=== PATIENT | male | born 1945 | race Caucasian/White ===

== ENCOUNTER 2017-01-22 21:33 | Observation (INO) | payer MEDICARE ==
[~2017-01-22] VITALS: Ht 175.3 cm; Wt 75.0 kg
[~2017-01-22 21:33] MED LIST: ATEN50TA PO; ATOR40TA16 PO; NIAC500T5 PO
[2017-01-22 21:35] VITALS: BP 153/80; PULSE 95; RESP 16; TEMP 98.7; O2SAT 97
--- NOTE | 2017-01-22 22:24 | PD ---
HPI Chief Complaint: GI Complaint Time Seen by Provider: 22:08 Travel History International Travel<30 days: No Contact w/Intl Traveler<30days: No Traveled to known affect area: No History of Present Illness HPI 71 YO M with PMH of CAD s/p CABG x 3, enlarged aortic root, stable by yearly CT exam presents to the ED for evaluation of ~3 hour history of BRBPR accompanied by loose stools. Patient endorses 2/10 lower abdominal pain which is improved by a bowel movement. He endorses a "stomachache" and 2 episodes of diarrhea yesterday. Denies nausea, vomiting, fever, chills, dizziness, dysuria, chest pain, weakness, shortness of breath. He denies family history of colon cancer. Last colonoscopy in 2014 revealed polyps, scheduled for reevaluation by Dr. Méndez in 2018. PCP Dr. Josue at [facility], cardiology Dr. Rodriguez.. [facility] Past Medical History Cardiovascular Problems: Yes (HIGH CHOLESTEROL, DILATED AORTIC ROOT, BYPASS 1996) High Cholesterol: Yes Coronary Artery Disease: Yes Tetanus Vaccination: Unknown Influenza Vaccination: Yes Past Surgical History Abdominal Surgery: Yes (ABDOMINAL HERNIA) AICD: No Cardiac Surgery: Yes (triple bypass) Joint Replacement: No Pacemaker: No Social History Alcohol Use: Yes (daily 1 or 2 liquior or wine) Tobacco Use: No Substance Use: No Allergies-Medications (Allergen,Severity, Reaction): Coded Allergies: codeine (Unverified Allergy, Severe, 01/22/17) Reported Meds & Prescriptions Reported Meds & Active Scripts Active Reported Aspirin 81 Mg Chew 81 Mg CHEW DAILY Sildenafil 20 Mg Tab 30 Mg PO DAILY Niacin 500 Mg Tab 500 Mg PO HS Atorvastatin (Atorvastatin Calcium) 40 Mg Tab 40 Mg PO HS Atenolol 50 Mg Tab 25 Mg PO DAILY Review of Systems Except as stated in HPI: all other systems reviewed are Neg Physical Exam Narrative GENERAL: Well-nourished, well-developed nontoxic appearing white male in no acute distress.. SKIN: Focused skin assessment warm/dry. HEAD: Normocephalic. EYES: No scleral icterus. No injection or drainage. NECK: Supple, trachea midline. No JVD or lymphadenopathy. CARDIOVASCULAR: Regular rate and rhythm without murmurs, gallops, or rubs. RESPIRATORY: Breath sounds clear and equal bilaterally. No accessory muscle use. GASTROINTESTINAL: Abdomen soft, non-tender, nondistended. RECTAL EXAM: No masses or tenderness, stool is brown. No external hemorrhoids noted. Guaiac positive. MUSCULOSKELETAL: No cyanosis, or edema. BACK: Nontender without obvious deformity. No CVA tenderness. Data Data Last Documented VS Vital Signs Date Time Temp Pulse Resp B/P (MAP) Pulse Ox O2 Delivery O2 Flow Rate FiO2 01/23/17 00:32 70 20 94/56 (69) 100 Room Air 01/22/17 23:38 98.4 Orders Orders Complete Blood Count With Diff (01/22/17 22:27) Comprehensive Metabolic Panel (01/22/17 22:27) Urinalysis - C+S If Indicated (01/22/17 22:27) Iv Access Insert/Monitor (01/22/17 22:27) Ecg Monitoring (01/22/17 22:27) Oximetry (01/22/17 22:27) Sodium Chloride 0.9% Flush (Ns Flush) (01/22/17 22:30) Type And Screen (01/22/17 22:27) Coag Profile (01/22/17 22:27) Ct Abd/Pel W Iv Contrast(Rout) (01/22/17 23:44) Sodium Chlor 0.9% 1000 Ml Inj (Ns 1000 M (01/23/17 00:45) Pantoprazole Inj (Protonix Inj) (01/23/17 00:45) Pantoprazole Inj (Protonix Inj) (01/23/17 00:45) Admit Order (Ed Use Only) (01/23/17 00:42) Place In Observation (01/23/17 ) Vital Signs (Adult) Q4H (01/23/17 00:42) Activity Oob With Assistance (01/23/17 00:42) Other Sports Coach Or Instructor / Telemetry .CONTINUOUS (01/23/17 00:42) Sodium Chloride 0.9% Flush (Ns Flush) (01/23/17 00:45) Sodium Chloride 0.9% Flush (Ns Flush) (01/23/17 09:00) Naloxone Inj (Narcan Inj) (01/23/17 00:45) Basic Metabolic Panel (Bmp) (01/23/17 06:00) Complete Blood Count With Diff (01/23/17 06:00) Labs Laboratory Tests Test 01/22/17 22:20 01/22/17 22:45 Urine Color YELLOW Urine Turbidity CLEAR Urine pH 5.5 Urine Specific [place] 1.038 Urine Protein TRACE mg/dL Urine Glucose (UA) TRACE mg/dL Urine Ketones TRACE mg/dL Urine Occult Blood NEG Urine Nitrite NEG Urine Bilirubin NEG Urine Urobilinogen 2.0 MG/DL Urine Leukocyte Esterase NEG Urine RBC LESS THAN 1 /hpf Urine WBC 1 /hpf Urine Squamous Epithelial Cells <1 /hpf Urine Hyaline Casts 7 /lpf Urine Mucus MANY /lpf Microscopic Urinalysis Comment CULT NOT INDICATED White Blood Count 10.2 TH/MM3 Red Blood Count 3.88 MIL/MM3 Hemoglobin 12.4 GM/DL Hematocrit 36.7 % Mean Corpuscular Volume 94.5 FL Mean Corpuscular Hemoglobin 31.9 PG Mean Corpuscular Hemoglobin Concent 33.8 % Red Cell Distribution Width 13.3 % Platelet Count 156 TH/MM3 Mean Platelet Volume 10.0 FL Neutrophils (%) (Auto) 69.5 % Lymphocytes (%) (Auto) 18.1 % Monocytes (%) (Auto) 10.3 % Eosinophils (%) (Auto) 1.6 % Basophils (%) (Auto) 0.5 % Neutrophils # (Auto) 7.1 TH/MM3 Lymphocytes # (Auto) 1.8 TH/MM3 Monocytes # (Auto) 1.0 TH/MM3 Eosinophils # (Auto) 0.2 TH/MM3 Basophils # (Auto) 0.1 TH/MM3 CBC Comment DIFF FINAL Differential Comment Prothrombin Time 11.2 SEC Prothromb Time International Ratio 1.1 RATIO Activated Partial Thromboplast Time 26.1 SEC Blood Urea Nitrogen 21 MG/DL Creatinine 1.22 MG/DL Random Glucose 151 MG/DL Total Protein 6.8 GM/DL Albumin 3.5 GM/DL Calcium Level 9.1 MG/DL Alkaline Phosphatase 74 U/L Aspartate Amino Transf (AST/SGOT) 17 U/L Alanine Aminotransferase (ALT/SGPT) 10 U/L Total Bilirubin 0.9 MG/DL Sodium Level 140 MEQ/L Potassium Level 4.4 MEQ/L Chloride Level 106 MEQ/L Carbon Dioxide Level 26.9 MEQ/L Anion Gap 7 MEQ/L Estimat Glomerular Filtration Rate 59 ML/MIN [facility] Medical Decision Making Medical Screen Exam Complete: Yes Emergency Medical Condition: Yes Differential Diagnosis hemorrhoids versus GI bleed versus anemia versus other Narrative Course 71 YO M with PMH of CAD s/p CABG x 3, enlarged aortic root, stable by yearly CT exam presents to the ED for evaluation of ~3 hour history of BRBPR accompanied by loose stools. Patient endorses 2/10 lower abdominal pain which is improved by a bowel movement. He endorses a "stomachache" and 2 episodes of diarrhea yesterday. Denies nausea, vomiting, fever, chills, dizziness, dysuria, chest pain, weakness, shortness of breath. He denies family history of colon cancer. Last colonoscopy in 2014 revealed polyps, scheduled for reevaluation by Dr. Méndez in 2018. PCP Dr. Josue at [facility], cardiology Dr. Rodriguez. Vitals reviewed. Physical exam reveals a nontoxic-appearing white male in no acute distress. Belly exam is benign. Rectal exam reveals no evidence of external hemorrhoids. Guaiac positive. IV was established. CBC, CMP, coags, UA, type and screen ordered and pending. Patient signed out to Dr. Marrufo at end of shift. Please see her note for disposition. [facility] Point of Care Internal Pos. & Neg. Controls: Passed Fecal Specimen Occult Blood: Positive Shereen Iverson Jan 22, 2017 22:24
[2017-01-22] MEDS ORDERED: SODIUM CHLORIDE 0.9% FLUSH 10 ML FLUSH IV FLUSH PRN (22:30)
[2017-01-22 22:40] VITALS: BP 139/73; PULSE 78; RESP 18; O2SAT 99
[2017-01-22] MEDS ORDERED: SILD20TA11 PO (22:43)
[2017-01-22] MEDS ORDERED: ASPI-516 CHEW (22:43)
[2017-01-22 23:00] LABS: AUTOMATED NEUTROPHIL # 7.1 TH/MM3 (1.8-7.7); BASOPHIL # 0.1 TH/MM3 (0-0.2); BASOPHIL % 0.5 % (0.0-2.0); EOSINOPHIL # 0.2 TH/MM3 (0-0.4); EOSINOPHIL % 1.6 % (0.0-4.0); HEMATOCRIT 36.7 % (39.0-51.0); HEMO FLAGS DIFF FINAL; LYMPH % 18.1 % (9.0-44.0); LYMPHOCYTE # 1.8 TH/MM3 (1.0-4.8); MEAN CELL VOLUME 94.5 FL (80.0-100.0); MEAN CORPUSCULAR HEMOGLOBIN 31.9 PG (27.0-34.0); MEAN CORPUSCULAR HGB CONC 33.8 % (32.0-36.0); MONO % 10.3 % (0.0-8.0); NEUT % 69.5 % (16.0-70.0); PLATELET COUNT 156 TH/MM3 (150-450); RED BLOOD COUNT 3.88 MIL/MM3 (4.50-5.90); RED CELL DISTRIBUTION WIDTH 13.3 % (11.6-17.2); WHITE BLOOD COUNT 10.2 TH/MM3 (4.0-11.0)
--- NOTE | 2017-01-22 23:08 | PD ---
Physical Exam Narrative General: The patient is well-developed well-nourished male in no acute distress. Head and Neck exam: Head is normocephalic atraumatic. Eyes: EOMI, pupils are equal round and reactive to light. Nose: Midline septum with pink mucous membranes Mouth: Dentition unremarkable. Moist mucus membranes. Posterior oropharynx is not erythematous. No tonsillar hypertrophy. Uvula midline. Airway patent. Neck: No palpable lymphadenopathy. No nuchal rigidity. No thyromegaly. Cardiovascular: Regular rate and rhythm without murmurs, gallops, or rubs. Lungs: Clear to auscultation bilaterally. No wheezes, rhonchi, or rales. Abdomen: Soft, without tenderness to palpation in all 4 quadrants of the abdomen. No guarding, rebound, or rigidity. Normal bowel sounds are audible. Extremities: No clubbing, cyanosis, or edema. Data Data Last Documented VS Vital Signs Date Time Temp Pulse Resp B/P (MAP) Pulse Ox O2 Delivery O2 Flow Rate FiO2 01/23/17 00:32 70 20 94/56 (69) 100 Room Air 01/22/17 23:38 98.4 Orders Orders Complete Blood Count With Diff (01/22/17 22:27) Comprehensive Metabolic Panel (01/22/17 22:27) Urinalysis - C+S If Indicated (01/22/17 22:27) Iv Access Insert/Monitor (01/22/17 22:27) Ecg Monitoring (01/22/17 22:27) Oximetry (01/22/17 22:27) Sodium Chloride 0.9% Flush (Ns Flush) (01/22/17 22:30) Type And Screen (01/22/17 22:27) Coag Profile (01/22/17 22:27) Ct Abd/Pel W Iv Contrast(Rout) (01/22/17 23:44) Sodium Chlor 0.9% 1000 Ml Inj (Ns 1000 M (01/23/17 00:45) Pantoprazole Inj (Protonix Inj) (01/23/17 00:45) Pantoprazole Inj (Protonix Inj) (01/23/17 00:45) Admit Order (Ed Use Only) (01/23/17 00:42) Place In Observation (01/23/17 ) Vital Signs (Adult) Q4H (01/23/17 00:42) Activity Oob With Assistance (01/23/17 00:42) Enrollment Advisor / Telemetry .CONTINUOUS (01/23/17 00:42) Diet Npo (01/23/17 Breakfast) Sodium Chloride 0.9% Flush (Ns Flush) (01/23/17 00:45) Sodium Chloride 0.9% Flush (Ns Flush) (01/23/17 09:00) Basic Metabolic Panel (Bmp) (01/24/17 06:00) Complete Blood Count With Diff (01/24/17 06:00) Naloxone Inj (Narcan Inj) (01/23/17 00:45) Consult Gastroenterology (01/23/17 ) Labs Laboratory Tests Test 01/22/17 22:20 01/22/17 22:45 Urine Color YELLOW Urine Turbidity CLEAR Urine pH 5.5 Urine Specific [place] 1.038 Urine Protein TRACE mg/dL Urine Glucose (UA) TRACE mg/dL Urine Ketones TRACE mg/dL Urine Occult Blood NEG Urine Nitrite NEG Urine Bilirubin NEG Urine Urobilinogen 2.0 MG/DL Urine Leukocyte Esterase NEG Urine RBC LESS THAN 1 /hpf Urine WBC 1 /hpf Urine Squamous Epithelial Cells <1 /hpf Urine Hyaline Casts 7 /lpf Urine Mucus MANY /lpf Microscopic Urinalysis Comment CULT NOT INDICATED White Blood Count 10.2 TH/MM3 Red Blood Count 3.88 MIL/MM3 Hemoglobin 12.4 GM/DL Hematocrit 36.7 % Mean Corpuscular Volume 94.5 FL Mean Corpuscular Hemoglobin 31.9 PG Mean Corpuscular Hemoglobin Concent 33.8 % Red Cell Distribution Width 13.3 % Platelet Count 156 TH/MM3 Mean Platelet Volume 10.0 FL Neutrophils (%) (Auto) 69.5 % Lymphocytes (%) (Auto) 18.1 % Monocytes (%) (Auto) 10.3 % Eosinophils (%) (Auto) 1.6 % Basophils (%) (Auto) 0.5 % Neutrophils # (Auto) 7.1 TH/MM3 Lymphocytes # (Auto) 1.8 TH/MM3 Monocytes # (Auto) 1.0 TH/MM3 Eosinophils # (Auto) 0.2 TH/MM3 Basophils # (Auto) 0.1 TH/MM3 CBC Comment DIFF FINAL Differential Comment Prothrombin Time 11.2 SEC Prothromb Time International Ratio 1.1 RATIO Activated Partial Thromboplast Time 26.1 SEC Blood Urea Nitrogen 21 MG/DL Creatinine 1.22 MG/DL Random Glucose 151 MG/DL Total Protein 6.8 GM/DL Albumin 3.5 GM/DL Calcium Level 9.1 MG/DL Alkaline Phosphatase 74 U/L Aspartate Amino Transf (AST/SGOT) 17 U/L Alanine Aminotransferase (ALT/SGPT) 10 U/L Total Bilirubin 0.9 MG/DL Sodium Level 140 MEQ/L Potassium Level 4.4 MEQ/L Chloride Level 106 MEQ/L Carbon Dioxide Level 26.9 MEQ/L Anion Gap 7 MEQ/L Estimat Glomerular Filtration Rate 59 ML/MIN [facility] Medical Record Reviewed: Yes Supervised Visit with TATYANA: No Narrative Course I, Dr. Marrufo, have reviewed the advance practice practitioner's documentation and am in agreement, met with the patient face to face, made the diagnosis, and the medical decision making was done by me. The patient was initially evaluated by Shereen. Please see their complete history and physical. *My assessment and Findings: The patient presents with a history of rectal bleeding that he reports began around 8:30 PM tonight. The patient reports that he's had multiple episodes of bleeding from the rectum. He denies ever having a GI bleed previously. He denies regularly taking ibuprofen, Naprosyn, or other [id number] anti-inflammatory medications other than a low-dose aspirin daily due to his history of coronary artery disease. The patient reports that earlier in the day he did have some stomach upset prior to having the onset of these bloody stools. He denies having any prior history of diverticulitis or diverticulosis. He has a history of having a polyp removed in 2014 on colonoscopy by . He is due to have another colonoscopy in 2018. During the course of the patients emergency department visit, the patients history, examination, and differential diagnosis were reviewed with the patient. The patient was placed on a monitor tech with oximetry and frequent blood pressure monitoring. The patient had IV access obtained and blood work sent for analysis. The patient was typed and screened for blood. While being observed in the emergency department, the patient had another episode of bloody stool. I did examine the patient's stool and it was a significant amount of blood with blood clots mixed with stool. The patient was initially provided normal saline 1 L IV fluid bolus. Protonix 80 mg IV for followed by a Protonix drip. The patients laboratory studies were reviewed and remarkable for a white count of 10.2, hemoglobin 12.4, platelets 156 with 10.3 monocytes, CMP is remarkable for V1 and 21, GFR 59, glucose 151, ALT 10, PT 11.2, PTT 26.1. Urinalysis shows concentrated urine, trace ketones, otherwise unremarkable per Radiology studies were reviewed and remarkable for a CT scan of the abdomen and pelvis that shows mild diverticulitis involving the descending colon. There is no free air, small amount of free fluid is noted, nonobstructive bowel gas pattern. The patient will be started on Levaquin and Flagyl IV. The patients results were discussed with the patient, including the plan of care. I explained that further testing and/ or monitoring is indicated based on the patients history, examination, and/ or laboratory findings. Therefore, I recommended admission for additional evaluation. The patient expressed understanding and was agreeable with this plan. The patient was admitted to the hospital in guarded condition and sent to a bed under the care of the [facility] service. Physician Communication Physician Communication The patient's case including history, pertinent physical examination findings, and laboratory studies were discussed with Dr. Edwards. It was agreed that the patient would be admitted to the [facility] service. Diagnosis Primary Impression: GI bleed Additional Impression: Diverticulitis Admitting Information Admitting Physician Requests: Admit Ml Marrufo MD Jan 22, 2017 23:08
[2017-01-22 23:10] LABS: APTT (PATIENT) 26.1 SEC (24.3-30.1); INTERNATIONAL NORMALIZED RATIO 1.1 RATIO; PROTHROMBIN TIME - PATIENT 11.2 SEC (9.8-11.6)
[2017-01-22 23:12] LABS: BLOOD, URINE NEG (NEG); COMMENT (UR) CULT NOT INDICATED; CULTURE IF INDICATED CULT NOT INDICATED; GLUCOSE,URINE TRACE mg/dL (NEG); HYALINE CAST, URINE 7 /lpf (RARE); KETONE, URINE TRACE mg/dL (NEG); MUCUS URINE MANY /lpf (OCC); NITRITE,URINE NEG (NEG); PH, URINE 5.5 (5.0-8.5); SQUAMOUS EPITHELIAL CELL URINE <1 /hpf (0-5); URINE COLOR YELLOW (YELLW/STRAW)
[2017-01-22 23:15] LABS: ANION GAP 7 MEQ/L (5-15); AST (GOT) 17 U/L (15-37); BICARBONATE 26.9 MEQ/L (21.0-32.0); BLOOD UREA NITROGEN 21 MG/DL (7-18); CHLORIDE 106 MEQ/L (98-107); GLOMERULAR FILTRATION RATE 59 ML/MIN (>89); POTASSIUM 4.4 MEQ/L (3.5-5.1); SODIUM (NA) 140 MEQ/L (136-145)
[2017-01-22 23:16] LABS: ALT (GPT) 10 U/L (12-78)
[2017-01-22 23:18] LABS: ALKALINE PHOSPHATASE 74 U/L (45-117); TOTAL BILIRUBIN ADULT 0.9 MG/DL (0.2-1.0)
[2017-01-22 23:38] VITALS: BP 119/68; PULSE 74; RESP 17; TEMP 98.4; O2SAT 97
[2017-01-23] VITALS (7 sets, daily range): BP systolic 94–117; BP diastolic 56–77; PULSE 70–87; RESP 16–20; TEMP 97.9–98.6; O2SAT 96–100
[2017-01-23] MEDS ORDERED: PANTOPRAZOLE INJ 80 MG in SODIUM CHLORIDE 0.9% INJ 35 ML IV ONE (00:45)
[2017-01-23] MEDS ORDERED: NALOXONE HCL 0.4 MG/ML AMP IV PUSH PRN (00:45)
[2017-01-23] MEDS ORDERED: PANTOPRAZOLE INJ 80 MG in SODIUM CHLORIDE 0.9% INJ 100 ML IV SCH (00:45)
[2017-01-23] MEDS ORDERED: SODIUM CHLOR 0.9% 1000 ML INJ 1,000 ML IV ONE (00:45)
[2017-01-23] MEDS ORDERED: SODIUM CHLORIDE 0.9% FLUSH 10 ML FLUSH IV FLUSH PRN (00:45)
[2017-01-23] MEDS ORDERED: IOHEXOL 350 MG/ML 10 ML VIAL (for RAD DIAG) IVCONTRAST ONE (01:02)
--- NOTE | 2017-01-23 01:43 | RADRPT ---
EXAM DATE/TIME: 01/23/2017 00:57 [place] COMPARISON: No previous studies available for comparison. INDICATIONS : Lower abdominal pain and blood in stool. IV CONTRAST: 75 cc Omnipaque 350 (iohexol) IV ORAL CONTRAST: No oral contrast ingested. RADIATION DOSE: 7.03 CTDIvol (mGy) MEDICAL HISTORY : CAD. SURGICAL HISTORY : CABG ENCOUNTER: Initial ACUITY: 2 days PAIN SCALE: 2/10 LOCATION: Bilateral lower quadrant TECHNIQUE: Volumetric scanning of the abdomen and pelvis was performed. Using automated exposure control and ad justment of the mA and/or kV according to patient size, radiation dose was kept as low as reasonably achievable to obtain optimal diagnostic quality images. DICOM format image data is available electro nically for review and comparison. FINDINGS: LOWER LUNGS: The visualized lower lungs are clear. LIVER: Homogeneous density without lesion. There is no dilation of the biliary tree. No calcified gallston es. SPLEEN: Normal size without lesion. PANCREAS: Within normal limits. KIDNEYS: Normal in size and shape. There is no mass, stone or hydronephrosis. ADRENAL GLANDS: Within normal limits. VASCULAR: There is no aortic aneurysm. BOWEL/MESENTERY: There is mild wall thickening inflammatory change involving the proximal descending colon with small diverticuli. There is no free air or. There is minimal adjacent fluid. ABDOMINAL WALL: Within normal limits. RETROPERITONEUM: There is no lymphadenopathy. BLADDER: No wall thickening or mass. REPRODUCTIVE: Within normal limits. INGUINAL: There is no lymphadenopathy or hernia. MUSCULOSKELETAL: Within normal limits for patient age. CONCLUSION: 1. Mild diverticulitis involving the descending colon. There is no free air. A small amount of fluid. 2. Nonobstructive bowel gas pattern. William Lantigua MD on January 23, 2017 at 1:39 Board Certified Radiologist. This report was verified electronically.
[2017-01-23] MEDS ORDERED: LEVOFLOXACIN 500 MG PREMIX INJ 100 ML IV ONE (03:00)
[2017-01-23] MEDS ORDERED: metroNIDAZOLE 500 MG INJ 100 ML IV ONE (03:00)
--- NOTE | 2017-01-23 03:53 | HHI.HP ---
HPI Service [facility] Primary Care Physician Isabel Josue, Admission Diagnosis GI Bleed Diagnoses: (1) Lower GI bleeding Chief Complaint: "I was passing blood" Travel History International Travel<30 Days: No Contact w/Intl Traveler <30 Da: No Traveled to Known Affected Are: No History of Present Illness Written by Jaylin Gibbons, acting as scribe for Dr. Edwards on 01/23/17 at 03:53. Diarrhea 3 times yesterday; bright red blood in urine; reports severe bleeding Polyp on Colonoscopy in 2015 Has never been told he has diverticulosis or internal hemorrhoid Reports lower abdominal pain; symptoms accompanied by shortness of breath. Takes EC ASA 81 mg daily Denies ibuprofen, advil, bc powders, any NSAIDs Denies nausea, vomiting, fever, not on antibiotics recently, burning or pain with urination Denies syncope, chest pain with episodes. Wasn't dizzy, diaphoretic during first two episodes. Diaphoretic, dizzy, near syncopal, and short of breath with third episode of diarrhea and bleeding. 30 years ago had upper endoscopy that was negative while being worked up for IBS Review of Systems Except as stated in HPI: all other systems reviewed are Neg Past Family Social History Past Medical History CABG 1996 - yearly stress tests Basal cell CA on forehead Denies DM, HTN, CHF, atrial fibrillation, COPD, asthma, liver problems, cirrhosis, DVT, PE, CVA, seizures, thyroid problems, prostate problems . Past Surgical History Hernia repair CABG Skin cancer removal . Reported Medications Reported Meds & Active Scripts Active Reported Aspirin 81 Mg Chew 81 Mg CHEW DAILY Sildenafil 20 Mg Tab 30 Mg PO DAILY Niacin 500 Mg Tab 500 Mg PO HS Atorvastatin (Atorvastatin Calcium) 40 Mg Tab 40 Mg PO HS Atenolol 50 Mg Tab 25 Mg PO DAILY . Allergies: Coded Allergies: codeine (Unverified Allergy, Severe, 01/22/17) Active Ordered Medications Current Medications Sodium Chloride (NS Flush) 2 ml UNSCH PRN IV FLUSH FLUSH AFTER USING IV ACCESS ; Start 01/22/17 at 22:30; Stop 01/23/17 at 00:48; Status DC Sodium Chloride 1,000 ml @ 1,000 mls/hr Q1H ONCE IV Last administered on 00:38; Start 01/23/17 at 00:45; Stop 01/23/17 at 01:44; Status DC Pantoprazole Sodium 80 mg/ Sodium Chloride 35 ml @ 420 mls/hr BOLUS ONCE IV Last administered on 01/23/17 00:49; Start 01/23/17 at 00:45; Stop 01/23/17 at 00:49; Status DC Pantoprazole Sodium 80 mg/ Sodium Chloride 100 ml @ 10 mls/hr CONTINUOUS IV Last administered on 01/23/17 01:41; Start 01/23/17 at 00:45 Sodium Chloride (NS Flush) 2 ml UNSCH PRN IV FLUSH FLUSH AFTER USING IV ACCESS ; Start 01/23/17 at 00:45 Sodium Chloride (NS Flush) 2 ml BID IV FLUSH ; Start 01/23/17 at 09:00 Naloxone HCl (Narcan Inj) 0.4 mg UNSCH PRN IV PUSH SEE LABEL COMMENTS; Start 01/23/17 at 00:45 Iohexol (Omnipaque 350 Inj) 75 ml STK-MED ONCE IVCONTRAST Last administered on 01/23/17 01:02; Start 01/23/17 at 01:02; Stop 01/23/17 at 01:03; Status DC Levofloxacin/ Dextrose 100 ml @ 100 mls/hr ONCE ONCE IV ; Start 01/23/17 at 03 :00; Stop 01/23/17 at 03:59 Metronidazole 100 ml @ 100 mls/hr ONCE ONCE IV ; Start 01/23/17 at 03:00; Stop 01/23/17 at 03:59 . Family History Both parents with CAD . Social History Tobacco: in his twenties, not routinely Alcohol: daily 1 - 2 drinks Illicit Drugs: denies . Physical Exam Vital Signs Vital Signs Date Time Temp Pulse Resp B/P (MAP) Pulse Ox O2 Delivery O2 Flow Rate FiO2 01/23/17 01:48 98.1 78 16 111/58 (75) 99 01/23/17 01:47 01/23/17 01:41 87 18 117/77 (90) 98 Nasal Cannula 2.00 01/23/17 00:32 70 20 94/56 (69) 100 Room Air 01/22/17 23:38 98.4 74 17 119/68 (85) 97 Room Air 01/22/17 22:40 78 18 139/73 (95) 99 Room Air 01/22/17 21:35 98.7 95 16 153/80 (104) 97 Room Air Physical Exam GENERAL: This is a pleasant, well-nourished, well-developed patient, in no apparent distress. SKIN: No rashes, ecchymoses or lesions. Cool and dry. HEAD: Atraumatic. Normocephalic. EYES: No scleral icterus. No injection or drainage. ENT: Nose without bleeding, purulent drainage. NECK: Trachea midline. No JVD or lymphadenopathy. CARDIOVASCULAR: Regular rate and rhythm without murmurs, gallops, or rubs. RESPIRATORY: Clear to auscultation. Breath sounds equal bilaterally. No wheezes , rales, or rhonchi. GASTROINTESTINAL: Abdomen soft, non-tender, nondistended. No guarding. MUSCULOSKELETAL: Extremities without clubbing, cyanosis, or edema. No calf tenderness. NEUROLOGICAL: Awake and alert. Motor and sensory grossly within normal limits. Normal speech. . Laboratory Laboratory Tests Test 01/22/17 22:20 01/22/17 22:45 Urine Color YELLOW Urine Turbidity CLEAR Urine pH 5.5 Urine Specific [place] 1.038 Urine Protein TRACE Urine Glucose (UA) TRACE Urine Ketones TRACE Urine Occult Blood NEG Urine Nitrite NEG Urine Bilirubin NEG Urine Urobilinogen 2.0 Urine Leukocyte Esterase NEG Urine RBC LESS THAN 1 Urine WBC 1 Urine Squamous Epithelial Cells <1 Urine Hyaline Casts 7 Urine Mucus MANY Microscopic Urinalysis Comment CULT NOT INDICATED White Blood Count 10.2 Red Blood Count 3.88 Hemoglobin 12.4 Hematocrit 36.7 Mean Corpuscular Volume 94.5 Mean Corpuscular Hemoglobin 31.9 Mean Corpuscular Hemoglobin Concent 33.8 Red Cell Distribution Width 13.3 Platelet Count 156 Mean Platelet Volume 10.0 Neutrophils (%) (Auto) 69.5 Lymphocytes (%) (Auto) 18.1 Monocytes (%) (Auto) 10.3 Eosinophils (%) (Auto) 1.6 Basophils (%) (Auto) 0.5 Neutrophils # (Auto) 7.1 Lymphocytes # (Auto) 1.8 Monocytes # (Auto) 1.0 Eosinophils # (Auto) 0.2 Basophils # (Auto) 0.1 CBC Comment DIFF FINAL Differential Comment Prothrombin Time 11.2 Prothromb Time International Ratio 1.1 Activated Partial Thromboplast Time 26.1 Blood Urea Nitrogen 21 Creatinine 1.22 Random Glucose 151 Total Protein 6.8 Albumin 3.5 Calcium Level 9.1 Alkaline Phosphatase 74 Aspartate Amino Transf (AST/SGOT) 17 Alanine Aminotransferase (ALT/SGPT) 10 Total Bilirubin 0.9 Sodium Level 140 Potassium Level 4.4 Chloride Level 106 Carbon Dioxide Level 26.9 Anion Gap 7 Estimat Glomerular Filtration Rate 59 Result Diagram: 01/22/175 01/22/172244 Imaging Last Impressions Abdomen/Pelvis CT 01/22/174 Signed Impressions: Service Date/Time: Monday, January 23, 2017 00:57 - CONCLUSION: 1. Mild diverticulitis involving the descending colon. There is no free air. A small amount of fluid. 2. Nonobstructive bowel gas pattern. William Lantigua MD . Caprini VTE Risk Assessment Caprini VTE Risk Assessment: Mod/High Risk (score >= 2) Caprini Risk Assessment Model Point Value = 1 Point Value = 2 Point Value = 3 Point Value = 5 Age 41-60 Minor surgery BMI > 25 kg/m2 Swollen legs Varicose veins or History of unexplained or recurrent spontaneous Oral contraceptives or hormone replacement Sepsis (< 1 month) Serious lung disease, including pneumonia (< 1 month) Abnormal pulmonary function Acute myocardial infarction Congestive heart failure (< 1 month) History of inflammatory bowel disease Medical patient at bed rest Age 61-74 Arthroscopic surgery Major open surgery (> 45 min) Laparoscopic surgery (> 45 min) Malignancy Confined to bed (> 72 hours) Immobilizing plaster cast Central venous access Age >= 75 History of VTE Family history of VTE Factor V Leiden Prothrombin [id number] Lupus anticoagulant Anticardiolipin antibodies Elevated serum homocysteine Heparin-induced thrombocytopenia Other congenital or acquired thrombophilia Stroke (< 1 month) Elective arthroplasty Hip, pelvis, or leg fracture Acute spinal cord injury (< 1 month) Prophylaxis Regimen Total Risk Factor Score Risk Level Prophylaxis Regimen 0-1 Low Early ambulation 2 Moderate Order ONE of the following: *Sequential Compression Device (SCD) *Heparin 5000 units SQ BID 3-4 Higher Order ONE of the following medications: *Heparin 5000 units SQ TID *Enoxaparin/Lovenox 40 mg SQ daily (WT < 150 kg, CrCl > 30 mL/min) *Enoxaparin/Lovenox 30 mg SQ daily (WT < 150 kg, CrCl > 10-29 mL/min) *Enoxaparin/Lovenox 30 mg SQ BID (WT < 150 kg, CrCl > 30 mL/min) AND/OR *Sequential Compression Device (SCD) 5 or more Highest Order ONE of the following medications: *Heparin 5000 units SQ TID (Preferred with Epidurals) *Enoxaparin/Lovenox 40 mg SQ daily (WT < 150 kg, CrCl > 30 mL/min) *Enoxaparin/Lovenox 30 mg SQ daily (WT < 150 kg, CrCl > 10-29 mL/min) *Enoxaparin/Lovenox 30 mg SQ BID (WT < 150 kg, CrCl > 30 mL/min) AND *Sequential Compression Device (SCD) Assessment and Plan Problem List: (1) Lower GI bleeding ICD Code: K92.2 - Gastrointestinal hemorrhage, unspecified (2) Diverticulitis ICD Code: K57.92 - Diverticulitis of intestine, part unspecified, without perforation or abscess without bleeding (3) CAD (coronary artery disease) ICD Code: I25.10 - Atherosclerotic heart disease of [place] coronary artery without angina pectoris Status: Chronic Assessment and Plan 71 y/o male with CAD who presented to the ER for evaluation of lower GI bleeding : Lower GI bleeding - repeat CBC in AM and follow results - transfuse if indicated - Diet NPO - Dr. Méndez - has seen patient previously and performed 2014 colonoscopy - On Protonix drip - Hold aspirin Diverticulitis, mild, descending colon - Antibiotics: Ciprofloxacin 400 mg IV q12h and Metronidazole 500 mg IV q8h CAD - continuous cardiac telemetry to monitor for cardiac arrhythmia - continue atorvastatin and atenolol DVT prophylaxis - SCDs/TEDs . Discussed Condition With Patient, RN, ER physician . Jaylin Gibbons Jan 23, 2017 03:53
[2017-01-23 05:15] LABS: AUTOMATED NEUTROPHIL # 5.9 TH/MM3 (1.8-7.7); BASOPHIL % 0.5 % (0.0-2.0); EOSINOPHIL # 0.1 TH/MM3 (0-0.4); EOSINOPHIL % 0.6 % (0.0-4.0); HEMATOCRIT 29.1 % (39.0-51.0); HEMO FLAGS DIFF FINAL; LYMPH % 18.9 % (9.0-44.0); LYMPHOCYTE # 1.6 TH/MM3 (1.0-4.8); MEAN CELL VOLUME 94.8 FL (80.0-100.0); MEAN CORPUSCULAR HGB CONC 34.9 % (32.0-36.0); MONO % 9.5 % (0.0-8.0); NEUT % 70.5 % (16.0-70.0); PLATELET COUNT 129 TH/MM3 (150-450); RED BLOOD COUNT 3.07 MIL/MM3 (4.50-5.90); WHITE BLOOD COUNT 8.4 TH/MM3 (4.0-11.0)
[2017-01-23 05:38] LABS: BICARBONATE 25.4 MEQ/L (21.0-32.0); POTASSIUM 4.5 MEQ/L (3.5-5.1)
[2017-01-23] MEDS ORDERED: SODIUM CHLORIDE 0.9% FLUSH 10 ML FLUSH IV FLUSH SCH (09:00)
[2017-01-23] MEDS ORDERED: ATENOLOL 25 MG TAB PO SCH (09:00)
[2017-01-23] MEDS ORDERED: DEXTROSE 5%-LACTATED RING INJ 1,000 ML IV SCH (09:30)
--- NOTE | 2017-01-23 09:53 | MB ---
cc: CAROLYN CASTRO,ABBI Melgar M.D. DATE OF CONSULTATION 01/23/2017 CHIEF COMPLAINT GI bleed. HISTORY OF PRESENT ILLNESS This patient is well-known to our service. He is a patient of Dr. Méndez. Last colonoscopy was done in 2014; he had a flat polyp at that time that was fulgurated and destroyed. The patient had a previous colonoscopy in 2004 which showed diverticulosis. The patient is a very healthy individual except for coronary artery bypass grafting 20 years ago. He is on a baby aspirin for that. The patient developed some abdominal discomfort two days ago and really did fine with that until last evening when he had some more abdominal discomfort, went out to dinner with friends and then got home and had explosive diarrhea with rectal bleeding. The patient had at least three episodes of profuse rectal bleeding at that time and then two more once he came to the hospital in the middle of the night or this morning. The patient has never had a GI bleed in the past. He has no upper GI symptoms and no nausea, no vomiting. He did have at least some lightheadedness with the last GI bleed but he has not bled mostly since being admitted to the emergency department. PAST MEDICAL HISTORY, FAMILY HISTORY, SOCIAL HISTORY AND REVIEW OF SYSTEMS Otherwise negative. PHYSICAL EXAMINATION GENERAL: A Well-developed comfortable male in no acute distress. SKIN: Warm and dry. HEENT: Extraocular muscles intact. NECK: Supple. ABDOMEN: Flat, soft, nontender in all quadrants. There were no masses. There is no tenderness on light or deep palpation. RECTAL: Exam was not done. EXTREMITIES: Range of motion within normal limits. NEUROLOGIC: Grossly normal. LABORATORY DATA: The patient came into the emergency department and I believe because of his abdominal discomfort described at the time of the GI bleed as crampy. He had a CT scan of the abdomen which showed mild diverticulitis involving the descending colon. The remainder of his laboratory data including his hemoglobin and hematocrit on admission was 12.4 and 36.7, down to 10.2 and 29.1 this morning. The patient has only had 1 liter of IV fluid so this decrease is likely not due to dilution. IMPRESSION Lower GI bleed of questionable etiology. The three possibilities are simply diverticulosis with a lower GI bleed which I favor. The other possibility is diverticulitis with a GI bleed which is extremely unusual, and of course the third possibility is ischemic colitis with GI bleeding. This is certainly a possibility, however, the patient has no pain at this time at all. PLAN I would recommend intravenous fluid at least while he is in the hospital and then if he has no further bleeding. I would discharge him from the hospital today. I will take the liberty of starting him on a full liquid diet and I will discuss this with Dr. Méndez who is his colorectal surgeon and decide on whether to keep him on antibiotics or to stop those. Abbi Mayberry MD JGUTIERREZ/RAYMOND /9:23 AM /9:37 AM
[2017-01-23] MEDS ORDERED: metroNIDAZOLE 500 MG INJ 100 ML IV SCH (10:00)
[2017-01-23] MEDS ORDERED: ASPI-516 CHEW (12:29)
--- NOTE | 2017-01-23 12:29 | HHI.DCPOC ---
Discharge Care Plan Diagnosis: (1) Lower GI bleeding (2) Diverticulitis Goals to Promote Your Health * To prevent worsening of your condition and complications * To maintain your health at the optimal level Directions to Meet Your Goals Take your medications as prescribed Follow your dietary instruction Follow activity as directed Keep your appointments as scheduled Take your immunizations and boosters as scheduled If your symptoms worsen call your PCP, if no PCP go to Urgent Care Center or Emergency Room Smoking is Dangerous to Your Health. Avoid second hand smoke Call the 24-hour hour crisis hotline for domestic abuse at William Topete DO Jan 23, 2017 12:29
[2017-01-23] MEDS ORDERED: PANT40TA3 PO (12:32)
--- NOTE | 2017-01-23 12:39 | HHI.PR ---
Subjective Remarks The patient was feeling well and wanted to go home. He had no further bleeding. No abdominal pain. Family at the bedside. Discussed with nursing and colorectal surgery. Objective Vitals Vital Signs Date Time Temp Pulse Resp B/P (MAP) Pulse Ox O2 Delivery O2 Flow Rate FiO2 01/23/17 12:00 97.9 76 18 113/60 (77) 97 01/23/17 08:15 98.6 76 18 105/57 (73) 96 01/23/17 06:09 75 01/23/17 01:48 98.1 78 16 111/58 (75) 99 01/23/17 01:47 01/23/17 01:41 87 18 117/77 (90) 98 Nasal Cannula 2.00 01/23/17 00:32 70 20 94/56 (69) 100 Room Air 01/22/17 23:38 98.4 74 17 119/68 (85) 97 Room Air 01/22/17 22:40 78 18 139/73 (95) 99 Room Air 01/22/17 21:35 98.7 95 16 153/80 (104) 97 Room Air I/O 01/22/17 01/22/17 01/22/17 01/23/17 01/23/17 01/23/17 07:00 15:00 23:00 07:00 15:00 23:00 Intake Total 1035 ml Balance 1035 ml Intake IV Total 1035 ml Result Diagram: 01/23/17 0457 01/23/17 0457 Imaging Last Impressions Abdomen/Pelvis CT 01/22/17 3289 Signed Impressions: Service Date/Time: Monday, January 23, 2017 00:57 - CONCLUSION: 1. Mild diverticulitis involving the descending colon. There is no free air. A small amount of fluid. 2. Nonobstructive bowel gas pattern. William Lantigua MD Objective Remarks GENERAL: This is a pleasant, well-nourished, well-developed patient, in no apparent distress. SKIN: No rashes, ecchymoses or lesions. Cool and dry. HEAD: Atraumatic. Normocephalic. EYES: No scleral icterus. No injection or drainage. ENT: Nose without bleeding, purulent drainage. NECK: Trachea midline. No JVD or lymphadenopathy. CARDIOVASCULAR: Regular rate and rhythm without murmurs, gallops, or rubs. RESPIRATORY: Clear to auscultation. Breath sounds equal bilaterally. No wheezes , rales, or rhonchi. GASTROINTESTINAL: Abdomen soft, non-tender, nondistended. No guarding. MUSCULOSKELETAL: Extremities without clubbing, cyanosis, or edema. No calf tenderness. NEUROLOGICAL: Awake and alert. Motor and sensory grossly within normal limits. Normal speech. Medications and IVs Current Medications Medications (Trade) Dose Ordered Sig/Froy Route Start Time Stop Time Status Last Admin Pantoprazole Sodium 80 mg/ Sodium Chloride 100 ml @ 10 mls/hr CONTINUOUS IV 01/23/17 00:45 01/23/17 01:41 (NS Flush) 2 ml UNSCH PRN IV FLUSH 01/23/17 00:45 01/23/17 05:02 (NS Flush) 2 ml BID IV FLUSH 01/23/17 09:00 (Narcan Inj) 0.4 mg UNSCH PRN IV PUSH 01/23/17 00:45 Ciprofloxacin/ Dextrose 200 ml @ 200 mls/hr Q12H IV 01/23/17 16:00 Metronidazole 100 ml @ 100 mls/hr Q6H IV 01/23/17 10:00 (Tenormin) 25 mg DAILY PO 01/23/17 09:00 01/23/17 11:55 (Lipitor) 40 mg HS PO 01/23/17 21:00 (Slo-Niacin) 500 mg HS PO 01/23/17 21:00 Dextrose/Lactated Ringer's 1,000 ml @ 150 mls/hr Q6H40M IV 01/23/17 09:30 A/P Problem List: (1) Lower GI bleeding ICD Code: K92.2 - Gastrointestinal hemorrhage, unspecified (2) Diverticulitis ICD Code: K57.92 - Diverticulitis of intestine, part unspecified, without perforation or abscess without bleeding (3) CAD (coronary artery disease) ICD Code: I25.10 - Atherosclerotic heart disease of [place] coronary artery without angina pectoris Status: Chronic Assessment and Plan 71 y/o male with CAD who presented to the ER for evaluation of lower GI bleeding : Lower GI bleeding Colorectal surgery consult appreciated. - repeat CBC in 2-3 days. - ADAT. - Dr. Méndez will see pt in one week. The pt has been cleared for discharge. - continue Protonix. - Hold aspirin per colorectal surgery. Diverticulitis Noted on CT scan. - D/c antibiotics per surgery. - ADAT. CAD No complaints at this time. - continuous cardiac telemetry to monitor for cardiac arrhythmia. - continue atorvastatin and atenolol. DVT prophylaxis - SCDs/TEDs Discharge Planning D/c home William Topete DO Jan 23, 2017 12:39
[2017-01-23] MEDS ORDERED: CIPROFLOXACIN 400 MG PREMIX 200 ML IV SCH (16:00)
[2017-01-23] MEDS ORDERED: NIACIN 500 MG EXTENDED RELEASE TAB PO SCH (21:00)
[2017-01-23] MEDS ORDERED: ATORVASTATIN 40 MG TAB PO SCH (21:00)
== END 2017-01-23 13:00 | disposition home or self-care (01) ==
LOC: NEPE 21:33 → INTOOBSV 01-23 00:43 → NEDA 01-23 00:43 → NEPHCDU 01-23 01:42
PROVIDERS: ADMIT Hospitalist; ATTEND Hospitalist
DX: K92.2 Gastrointestinal hemorrhage, unspecified (principal); K57.92 Diverticulitis of intestine, part unspecified, without perforation or abscess without bleeding; I25.10 Atherosclerotic heart disease of native coronary artery without angina pectoris; R06.02 Shortness of breath; R42 Dizziness and giddiness; R55 Syncope and collapse; R61 Generalized hyperhidrosis; R31.9 Hematuria, unspecified; E78.00 Pure hypercholesterolemia, unspecified; Z95.1 Presence of aortocoronary bypass graft; Z85.828 Personal history of other malignant neoplasm of skin; Z79.82 Long term (current) use of aspirin; Z79.899 Other long term (current) drug therapy
CPT/HCPCS: 74177; 80048; 80053; 81001; 85025; 85610; 85730; 86850; 86900; 86901; 96365; 96366; 99285; C9113; G0378; J1956; J7030; Q9967

== ENCOUNTER → 2017-03-13 | Outpatient (CLI) | payer MEDICARE ==
[~2017-03-13] VITALS: Ht 175.3 cm; Wt 74.6 kg
[~2017-03-13] MED LIST changes: +ASPI-516 CHEW; +CHLORHEXIDINE GLUCONATE 2 % 1 PACK (2 CLOTHS) TOPICAL PRN; +DEXTROSE 5% IN WATE 1000ML INJ 1,000 ML IV SCH; +LACTATED RINGER'S 1000 ML IV PRN; +LIDOCAINE HCL 1% PF 5 ML SYRINGE OTHER ONE; +METOPROLOL TARTRATE 25 MG TAB PO PRN; +POVIDONE IODINE 5% (ANTISEPSIS KIT) 4 APPLICATIONS EACH NARE PRN; +PROPOFOL 200 MG/20 ML AMP IV ONE; +SILD20TA11 PO; +SODIUM CHLORID 0.9% 500 ML IV PRN
--- NOTE | 2017-03-13 12:21 | EKG ---
Date Performed: 03/13/2017 Time Performed: 11:10:06 PTAGE: 71 years EKG: SINUS BRADYCARDIA POSSIBLE INFERIOR MYOCARDIAL INFARCTION , PROBABLY OLD BORDERLINE ECG PREVIOUS TRACING : 04/07/2014 12.02 Since the prior tracing, there has been no significant morales DOCTOR: Jayesh Ch Interpretating Date/Time 03/13/2017 12:21:00
[2017-03-13 13:00] VITALS: BP 129/76; PULSE 56; RESP 18; TEMP 98.3; O2SAT 100
--- NOTE | 2017-03-13 13:31 | MR ---
cc: SINGH MÉNDEZ MD DATE 03/13/2017 PREOPERATIVE DIAGNOSIS GI bleeding and a history of polyps. POSTOPERATIVE DIAGNOSIS 1. 7-mm proximal ascending polyp fulgurated 2. Sigmoid diverticulosis PROCEDURE Total colonoscopy with fulguration of polyp SURGEON Singh Méndez MD ANESTHESIA MAC INDICATION This is a 71-year-old who had an episode of lower GI bleeding several weeks ago. The bleeding stopped and was suspected to be due to diverticular disease. The patient presents for colonoscopy. He also has a history of medium-size ascending colon polyps. PROCEDURE The Olympus adult colonoscope was introduced from the anus to the cecum without significant difficulty in the left lateral position with some right upper quadrant pressure and straightening maneuvers. The patient's colon is dilated and redundant. The bowel was identified and the cecum seen completely. The scope was withdrawn. The bowel prep was excellent. There was a 7 mm proximal ascending polyp one-half fold distal to the valve. The polyp was fulgurated. It was not clear whether it was hyperplastic or adenomatous. No other polyps were identified. Diverticulosis was noted without inflammation. There was no evidence of colitis. The patient tolerated the procedure well. MD WILDER Pedroza/FELICITY /1:06 PM /1:18 PM
== END ==
LOC: HSDC 10:45
PROVIDERS: ATTEND Colon & Rectal Surgery
DX: Z86.010 Personal history of colon polyps (principal); K63.5 Polyp of colon; K57.30 Diverticulosis of large intestine without perforation or abscess without bleeding; I25.10 Atherosclerotic heart disease of native coronary artery without angina pectoris; Z79.82 Long term (current) use of aspirin; Z87.891 Personal history of nicotine dependence
CPT/HCPCS: 00812; 45388; 93005; J7120